=== PATIENT | female | born 1990 ===

== ENCOUNTER → 2018-01-24 | Outpatient (CLI) | payer BC ==
[2018-01-24 13:06] LABS: ALT 26 U/L (9-52); AST 21 U/L (14-36); Alkaline Phosphatase 83 U/L (38-126); Anion Gap 14 mmol/L; Blood Urea Nitrogen 11 mg/dL (7-17); Calcium 9.4 mg/dL (8.4-10.2); Carbon Dioxide 27 mmol/L (22-30); Chloride 104 mmol/L (98-107); Glucose 94 mg/dL (74-99); Potassium 4.4 mmol/L (3.5-5.1); Sodium 145 mmol/L (137-145); Total Bilirubin 0.4 mg/dL (0.2-1.3); Total Protein 7.1 g/dL (6.3-8.2)
[2018-01-24 19:30] LABS: DHEA Sulfate 255.5 ug/dL (26.0-430.0)
== END | disposition home or self-care (01) ==
LOC: LABWHC1 12:27
PROVIDERS: ATTEND Internal Medicine Endocrinology, Diabetes & Metabolism
DX: L68.0 Hirsutism (principal)
CPT/HCPCS: 36415; 80053; 82627; 82670; 83001; 83002; 83498; 84146; 84403